=== PATIENT | male | born 1975 | race American Indian/Alaskan Native ===

== ENCOUNTER 2019-03-05 19:11 | Emergency (ER) | payer MEDICAID ==
--- NOTE | 2019-03-05 20:35 | Emergency Department Report ---
Blank Doc - Documentation Documentation: 43-year-old male that presents with acute headache. Denies any head injuries. This initial assessment/diagnostic orders/clinical plan/treatment(s) is/are subject to change based on patient's health status, clinical progression and re- assessment by fellow clinical providers in the ED. Further treatment and workup at subsequent clinical providers discretion. Patient/guardians urged not to elope from the ED as their condition may be serious if not clinically assessed and managed. Initial orders include: 1- Patient sent to [facility] for further evaluation and treatment 2- CT head
[2019-03-05] MEDS ORDERED: TYLENOL PO ONE (20:39)
--- NOTE | 2019-03-05 23:00 | Emergency Department Report ---
ED Headache HPI - General Chief Complaint: Headache Stated Complaint: HEAD PAIN Time Seen by Provider: 03/05/19 20:34 - History of Present Illness Initial Comments: 43-year-old -[place] male presents to the emergency room for headache that started today. Patient denies any nausea vomiting or head injury. Patient has not taken anything for his pain. Patient also has hypertension and diabetes and has not taken his blood pressure medicine today. Patient denies any photophobia. Quality: severe Head Injury Location: frontal Recent Head Trauma: no recent headache/trauma Associated Symptoms: denies symptoms Allergies/Adverse Reactions: Allergies No Known Allergies Allergy (Unverified 03/05/19 20:40) Home Medications: Ambulatory Orders Ibuprofen [Motrin 600 MG tab] 600 mg PO Q8H PRN #21 tablet 03/06/19 ED Review of Systems ROS: Stated complaint: HEAD PAIN Other details as noted in HPI Comment: All other systems reviewed and negative Neurological: headache ED Past Medical Hx - Past Medical History Previous Medical History?: Yes Hx Hypertension: Yes Hx Diabetes: Yes Additional medical history: Chronic wounds on feet - Surgical History Past Surgical History?: Yes Additional Surgical History: Right foot - Social History Smoking Status: Never Smoker Substance Use Type: None - Medications Home Medications: Home Medications Medication Instructions Recorded Confirmed Last Taken Type Ibuprofen [Motrin 600 MG tab] 600 mg PO Q8H PRN #21 tablet 03/06/19 Unknown Rx ED Physical Exam - General Limitations: No Limitations General appearance: alert, in no apparent distress - Head Head exam: Present: atraumatic, normocephalic - Eye Eye exam: Present: normal appearance - ENT ENT exam: Present: mucous membranes moist - Neck Neck exam: Present: normal inspection - Respiratory Respiratory exam: Present: normal lung sounds bilaterally. Absent: respiratory distress - Cardiovascular Cardiovascular Exam: Present: regular rate, normal rhythm. Absent: systolic murmur, diastolic murmur, rubs, gallop - GI/Abdominal GI/Abdominal exam: Present: soft, normal bowel sounds - Extremities Exam Extremities exam: Present: normal inspection, full ROM - Neurological Exam Neurological exam: Present: alert, oriented X3 - Expanded Neurological Exam Expanded Cranial nerves: EOM's Intact: Normal, Gag Reflex: Normal, Tongue Deviation: Normal, Nystagmus: Normal, Facial Sensation: Normal, Facial Palsy with Forehead Movement: Normal, Facial Palsy without Forehead Movement: Normal Cerebellar function: Finger to Nose: Normal, Heel to Grissom: Normal, Romberg: Normal Upper motor neuron: Joel Neglect: Normal, Pronator Drift: Normal, Babinski Sign: Normal, Sensory Extinction: Normal Sensory exam: Upper Extremity Light Touch: Normal, Upper Extremity Pin Prick: Normal, Upper Extremity Temperature: Normal, UE 2 Point Discrimination: Normal, Lower Extremity Light Touch: Normal, Lower Extremity Pin Prick: Normal, Lower Extremity Temperature: Normal, LE 2 Point Discrimination: Normal Motor strength exam: RUE: 4, LUE: 4, RLE: 4, LLE: 4 Best Eye Response (Francisco): (4) open spontaneously Best Motor Response (Francisco): (6) obeys commands Best Verbal Response (Fontana): (5) oriented Francisco Total: 15 - Psychiatric Psychiatric exam: Present: normal affect, normal mood - Skin Skin exam: Present: warm, dry, intact, normal color. Absent: rash ED Course Vital Signs 03/05/19 03/06/19 20:31 01:29 Temperature 99.3 F 97.7 F Pulse Rate 104 H 81 Respiratory 18 14 Rate Blood Pressure 161/106 Blood Pressure 115/82 [Left] O2 Sat by Pulse 96 98 Oximetry ED Medical Decision Making - Radiology Data Radiology results: report reviewed Patient: ANTHONY ANDRADE MR#: [id number] : 1975 Acct:[id number] Age/Sex: 43 / M ADM Date: 03/05/19 Loc: ED Attending Dr: Ordering Physician: NATALY NAJERA Date of Service: 03/06/19 Procedure(s): CT head/brain wo con Accession Number(s): [id number] cc: NATALY NAJERA CT HEAD WITHOUT CONTRAST INDICATION: headache , duration 2-3 days TECHNIQUE: All CT scans at this location are performed using CT dose reduction for ALARA by means of automated exposure control. COMPARISON: None available. FINDINGS: BRAIN: No hemorrhage or mass effect are seen. No evidence of acute infarction is noted. ORBITS: Normal as visualized. SOFT TISSUES OF HEAD: Normal. CALVARIUM: Normal. VISUALIZED PARANASAL SINUSES AND MASTOID AIR CELLS: Clear. ADDITIONAL FINDINGS: None. IMPRESSION: No acute intracranial abnormality. Signer Name: Reese Maravilla MD Signed: 03/06/2019 2:19 AM Workstation Name: [id number] Transcribed By: GJ Dictated By: Reese Maravilla MD Electronically Authenticated By: Reese Maravilla MD Signed Date/Time: 03/06/19218 DD/ 5 TD/TT: - Medical Decision Making 43-year-old -[place] male presents to the emergency room for headache that started today. Patient denies any nausea vomiting or head injury. Patient has not taken anything for his pain. Patient also has hypertension and diabetes and has not taken his blood pressure medicine today. Patient denies any photophobia. It Was reported the patient refuses CT scan twice. Patient was given acetaminophen 975 in triage. Critical care attestation.: If time is entered above; I have spent that time in minutes in the direct care of this critically ill patient, excluding procedure time. ED Disposition Clinical Impression: Headache Qualifiers: Headache type: unspecified Headache chronicity pattern: acute headache Disposition: - TO HOME OR SELFCARE Is pt being admited?: No Does the pt Need Aspirin: No Condition: Stable Instructions: Acute Headache (ED) Additional Instructions: CT of your head is negative for any acute abnormalities. Please take Tylenol and ibuprofen for pain in her head. Follow up with her primary care provider if his symptoms persist or gets worse. Prescriptions: Ibuprofen [Motrin 600 MG tab] 600 mg PO Q8H PRN #21 tablet PRN Reason: Pain Referrals: PRIMARY CARE, [Primary Care Provider] - 3-5 Days Your,provider [Other] - 3-5 Days
[2019-03-06 01:30] VITALS: BP 115/82
--- NOTE | 2019-03-06 02:23 | Cat Scan Report ---
CT HEAD WITHOUT CONTRAST INDICATION: headache , duration 2-3 days TECHNIQUE: All CT scans at this location are performed using CT dose reduction for ALARA by means of automated exposure control. COMPARISON: None available. FINDINGS: BRAIN: No hemorrhage or mass effect are seen. No evidence of acute infarction is noted. ORBITS: Normal as visualized. SOFT TISSUES OF HEAD: Normal. CALVARIUM: Normal. VISUALIZED PARANASAL SINUSES AND MASTOID AIR CELLS: Clear. ADDITIONAL FINDINGS: None. IMPRESSION: No acute intracranial abnormality. Signer Name: Reese Maravilla MD Signed: 03/06/2019 2:19 AM Workstation Name: [id number]
== END 2019-03-06 03:34 | disposition home or self-care (01) ==
LOC: ED 19:11
DX: R51 Headache (principal); I10 Essential (primary) hypertension; E11.9 Type 2 diabetes mellitus without complications
CPT/HCPCS: 70450